=== PATIENT | male | born 1980 | race Caucasian/White ===

== ENCOUNTER 2023-08-04 07:09 | Day surgery (SDC) | payer OTHER ==
[~2023-08-04] VITALS: Ht 182.9 cm; Wt 88.9 kg
[~2023-08-04 07:09] MED LIST: LR 1,000 ML IV SCH; NO HOME MEDICATIONS; NORCO 325 MG-7.1 TAB PO
[2023-08-04 08:12] VITALS: BP 141/97; PULSE 100; TEMP 97
[2023-08-04 09:30] VITALS: BP 137/100; PULSE 95; TEMP 98
[2023-08-04] MEDS ORDERED: Acetaminophen 500 MG TAB PO PRN (09:45)
[2023-08-04] MEDS ORDERED: Ibuprofen 600 MG TAB PO PRN (09:45)
--- NOTE | 2023-08-04 10:41 | NUR ---
[id number]: PT TO RECOVERY BAY FROM OR S/P FB REMOVAL FROM L [facility] - NO IV OR ANAESTHESIA/SEDATION GIVEN (LOCAL ONLY) A&O, PLACED ON MONITOR, VSS ON RA DRSG (2X2, MEDIPORE TAPE) CDI REPORTS MILD PAIN TO SURGICAL SITE - ICE BAG PLACED ON SAME. PT ED ON PHARM (OTC)/NONPHARM PAIN MGMT - PT VERBALIZED RECEIVED REPORT AND ASSUMED CARE OF PT FROM DOMINGO ARREDONDO AT BEDSIDE PROVIDED FOOD/FLUIDS, TOLERATING WELL PT HAS REMAINED A&O, NAD, VSS ON RA, TOLERATING PO, IS WITHOUT SIGNIFICANT COMPLAINT, DRSG REMAINS CDI, SAFE GAIT THRU OUT STAY D/C INSTRUCTIONS, FOLLOW UP REVIEWED AND HANDED TO PT. ALL QUESTIONS AND CONCERNS ADDRESSED TO PT SATISFACTION. TAKEN TO EXIT VIA W/C WITH ALL BELONGINGS AND PAPERWORK IN HAND, ASSISTED INTO PASSENGER SEAT OF POV. FAMILY TO DRIVE HOME.
== END 2023-08-04 10:10 | disposition home or self-care (01) ==
LOC: SDCO 07:09
DX: S50.352A Superficial foreign body of left elbow, initial encounter (principal); F17.210 Nicotine dependence, cigarettes, uncomplicated; F15.10 Other stimulant abuse, uncomplicated; W45.8XXA Other foreign body or object entering through skin, initial encounter